=== PATIENT | male | born 1985 | race Caucasian/White ===

== ENCOUNTER 2017-01-10 16:57 | Emergency (ER) | payer OTHER ==
[~2017-01-10] VITALS: Ht 188 cm; Wt 97.1 kg
[~2017-01-10 16:57] MED LIST: ONDA4TAB10 SL; PANT40TA PO
[2017-01-10 17:02] VITALS: BP 113/68; PULSE 86; TEMP 37; O2SAT 96; Ht 188 cm; Wt 97.1 kg
--- NOTE | 2017-01-10 18:00 | DIAGNOSTIC IMAGING REPORT ---
RIGHT WRIST W/NAVICULAR MIN 3 VIEWS CLINICAL HISTORY: Right wrist pain s/p fall, scaphoid tenderness Right COMPARISON: None. DISCUSSION: The bones and joint spaces appear intact. There is no evidence of fracture, dislocation or bony disease. There is no evidence for soft tissue swelling. IMPRESSION: Negative study. Electronically signed by: Rajendra Avitia M.D. 01/10/2017 5:58 PM Dictated Date/Time: 01/10/2017 5:58 PM
--- NOTE | 2017-01-10 18:17 | EMERGENCY ROOM VISIT NOTE ---
History First contact with patient: 17:07 Chief Complaint: HAND PAIN/INJURY Stated Complaint: RIGHT HAND BROKEN/BRUISED History of Present Illness The patient is a 31 year old male who presents to the Emergency Room with complaints of "right hand broken/bruising". The patient states that 1 week ago he fell ascending a set of steps, and tripped injuring his right wrist. He notes pain in the right navicular region. He is right-handed. He rates his pain as a 5/10. He denies any loss of consciousness, striking his head. Review of Systems A complete 6-point Review of Systems was discussed with the patient, with pertinent positives and negatives listed in the History of Present Illness. All remaining Review of Systems questions can be considered negative unless otherwise specified. Past Medical/Surgical History Medical Problems: (1) Epilepsy Family History No pertinent family history Social History Smoking Status: Current Every Day Smoker Alcohol Use: occasionally Marital Status: single Occupation Status: employed Current/Historical Medications No Active Prescriptions or Reported Meds Allergies Coded Allergies: Penicillins (Unverified Allergy, Mild, 11/05/09) Physical Exam Vital Signs Date Time Temp Pulse Resp B/P Pulse Ox O2 Delivery O2 Flow Rate FiO2 01/10/17 17:02 37.0 86 18 113/68 96 Room Air Physical Exam VITAL SIGNS - Vital signs and nursing notes were reviewed. He is afebrile, normotensive, non-tachycardic and saturating well on room air 96%. GENERAL -31-year-old male appearing his stated age who is in no acute distress. Communicates well with provider and answers questions appropriately. SKIN - Without rashes. The skin is intact overlying the right navicular region. EXTREMITIES - No clubbing or peripheral cyanosis. He is neurovascularly intact in the right upper extremity. There is anatomical snuffbox tenderness. No forearm tenderness or hand tenderness. Negative Leona test. +5/5 strength noted in UE/LE bilaterally. Medical Decision & Procedures ER Provider Diagnostic Interpretation: RIGHT WRIST W/NAVICULAR MIN 3 VIEWS CLINICAL HISTORY: Right wrist pain s/p fall, scaphoid tenderness Right COMPARISON: None. DISCUSSION: The bones and joint spaces appear intact. There is no evidence of fracture, dislocation or bony disease. There is no evidence for soft tissue swelling. IMPRESSION: Negative study. Electronically signed by: Rajendra Avitia M.D. 01/10/2017 5:58 PM Dictated Date/Time: 01/10/2017 5:58 PM Medical Decision Patient was seen and evaluated as above. After obtaining a thorough history and physical examination there was concern for scaphoid fracture secondary to subjective and objective examination findings. Results of the radiograph as above. I agree with radiologist findings. No acute fracture. I suspect an occult fracture would be identified at this point as he is greater than 7 days post injury. Nonetheless, he was splinted with a thumb spica Velcro splint and was referred to orthopedics. He was educated upon management. He was educated upon worrisome symptoms which to return, had questions about discharge and was discharged home in good condition. In the evaluation and treatment of this patient, the following differential diagnoses were considered: Wrist Sprain, Wrist Fracture, Wrist Dislocation, Scapholunate Dissociation, Carpal Fracture, Metacarpal Fracture, Radial Styloid Process Fracture, Ulnar Styloid Process Fracture, or Carpal Tunnel Syndrome. Impression Primary Impression: Wrist pain, right Departure Information Dispostion Home / Self-Care Condition GOOD Prescriptions No Active Prescriptions or Reported Meds Referrals No Doctor, Assigned (PCP) Michael Stevenson D.O. Patient Instructions My [facility] Additional Instructions You have been treated in the Emergency Department for Wrist Pain. For pain control, you can use the following [id number] medicines (if >12 yo): - Regular strength (325mg/tab) Tylenol (acetaminophen) 2 tabs every 4-6 hours as needed. Do not exceed 12 tablets in a 24 hour period. Avoid taking more than 3 grams (3000 mg) of Tylenol per day. This includes any other sources of acetaminophen you may take on a regular basis. - Regular strength (200 mg/tab) Advil (ibuprofen) 1-2 tabs every 4-6 hours as needed. Do not exceed a dose of 3200 mg per day. If this is a recent injury (<24 hrs), ice can be applied to the area of pain for the first 3 days to help decrease pain and inflammation. You have been provided the number for an Orthopaedic Surgeon. You should call this number as soon as possible to establish a follow-up visit from today's Emergency Department visit. (Dr. Stevenson) Keep the brace/splint in place until evaluated by Orthopedics. Return to the Emergency Department if your current symptoms worsen despite treatment course outlined above, or if you develop any of the following symptoms : intractable pain despite aforementioned treatment course or new onset of numbness or tingling of the fingers. Please return to the emergency department with any new/concerning symptoms. Thank you for your time.
== END 2017-01-10 18:20 | disposition home or self-care (01) ==
LOC: C.EDB 16:59 → C.EDD 18:20
DX: M25.531 Pain in right wrist (principal); W10.9XXA Fall (on) (from) unspecified stairs and steps, initial encounter; G40.909 Epilepsy, unspecified, not intractable, without status epilepticus; F17.210 Nicotine dependence, cigarettes, uncomplicated